=== PATIENT | male | born 1960 | race African-American/Black ===

== ENCOUNTER 2017-08-19 16:44 | Emergency (ER) | payer OTHER, MEDICAID, SELFPAY ==
[2017-08-19 16:48] VITALS: BP 149/89; PULSE 111; RESP 15; TEMP 37.1; O2SAT 98; BMI 23.0
[2017-08-19 17:04] LABS: Appearance Urine UA TURBID; Bilirubin Urine UA NEGATIVE (NEGATIVE); Color Urine UA YELLOW; Glucose Urine UA NEGATIVE (Normal); Ketones Urine UA TRACE (NEGATIVE); Leukocyte Esterase Urine UA NEGATIVE (NEGATIVE); Nitrite Urine UA Negative (Negative); Occult Blood Urine UA 3+ (Negative); Protein Urine UA 3+ (Negative); Specific Gravity Urine UA >=1.030 (1.000-1.035); Urobilinogen Urine UA 0.2 E.U./dL (0.2)
[2017-08-19 17:14] LABS: Bacteria Urine Few (2-10); Culture Indicated Urine Specimen Cultured; Mucus Urine 2+ (Negative); RBC Urine 10-30/HPF (0-5/HPF); Squamous Epithelial Cell Urine 0-1 /HPF; WBC Urine 10-30/HPF (0-5/HPF)
--- NOTE | 2017-08-19 17:56 | ED_ITS ---
HPI - Male Genitourinary <Shantal Azar PA-C - Last Filed: 08/19/17 18:41> General Chief complaint: Urogenital-Male Stated complaint: URGENCY, BLOOD IN URINE Time Seen by Provider: 08/19/17 17:39 Source: patient Mode of arrival: ambulatory Limitations: no limitations History of Present Illness HPI Narrative: This 56-year-old male complains of UTI. He states that he started to have burning with urination along with urgency and frequency yesterday, then noticed hematuria at the end of his stream this morning. He states the symptoms are similar to his previous urinary infections for which she has always taken Cipro. He denies any penile discharge or STD concerns. He denies any nausea, vomiting, fever, new flank pain or abdominal pain or other complaints on systems review. Related Data Home Medications Medication Instructions Recorded Confirmed colestipol 1 gram tablet 1 gram PO TID 07/02/17 07/04/17 Previous Rx's Medication Instructions Recorded nystatin 100,000 unit/gram topical 1 applictn TOP TID #30 gram 07/02/17 cream ciprofloxacin HCl [Cipro] 250 mg PO BID #10 tab 08/19/17 phenazopyridine [Pyridium] 200 mg PO Q8H PRN #6 tab 08/19/17 Allergies Allergy/AdvReac Type Severity Reaction Status Date / Time Iodinated Contrast- Oral and Allergy Unknown Verified 08/19/17 16:48 IV Dye [IODINATED CONTRAST- ORAL AND IV DYE] Review of Systems <Shantal Azar PA-C - Last Filed: 08/19/17 18:41> Review of Systems All systems reviewed & are unremarkable except as noted in HPI and below Exam <Shantal Azar PA-C - Last Filed: 08/19/17 18:41> Narrative Exam Narrative: GENERAL APPEARANCE: Patient sitting comfortably, in no distress. LUNGS: Clear to auscultation bilaterally. HEART: Rate and rhythm regular without murmur, normal S1 and S2, no S3 or S4. ABDOMEN: Soft, NT, ND, +BS x 4 quadrants, no CVAT. Initial Vital Signs Initial Vital Signs: Vital Signs Temperature 98.7 F 08/19/17 16:48 Pulse Rate 111 H 08/19/17 16:48 Respiratory Rate 15 08/19/17 16:48 Blood Pressure 149/89 H 08/19/17 16:48 Pulse Oximetry 98 08/19/17 16:48 <DO Jen Montoya Last Filed: 08/21/17 17:41> Initial Vital Signs Initial Vital Signs: Vital Signs Temperature 98.7 F 08/19/17 16:48 Pulse Rate 111 H 08/19/17 16:48 Respiratory Rate 15 08/19/17 16:48 Blood Pressure 149/89 H 08/19/17 16:48 Pulse Oximetry 98 08/19/17 16:48 Course <MAURICIO Reis Last Filed: 08/19/17 18:41> Orders Ordered: ED Orders 08/19/17 16:49 Urinalysis and Microscopic Stat Urine Culture Stat Vital Signs - 8 hr 08/19/17 16:48 08/19/17 18:03 Temperature 98.7 F Pulse Rate 111 H 96 H Respiratory Rate 15 14 Blood Pressure 149/89 H 144/93 H Pulse Oximetry 98 97 <DO Jen Montoya Last Filed: 08/21/17 17:41> Orders Ordered: ED Orders 08/19/17 16:49 Urinalysis and Microscopic Stat Urine Culture Stat Vital Signs - 8 hr 08/19/17 16:48 08/19/17 18:03 Temperature 98.7 F Pulse Rate 111 H 96 H Respiratory Rate 15 14 Blood Pressure 149/89 H 144/93 H Pulse Oximetry 98 97 MDM - Male Genitourinary <MAURICIO Reis Last Filed: 08/19/17 18:41> Lab Data Attestation: I reviewed the patient's lab results. Lab Results 08/19/17 Range/Units 16:49 Urine Color Yellow Urine Appearance Turbid Urine pH 5.0 (4.5-8.0) Ur Specific [place] >=1.030 H (1.000-1.035) Urine Protein 3+ H (Negative) Urine Glucose (UA) Negative (Normal) g/dL Urine Ketones Trace H (NEGATIVE) Urine Occult Blood 3+ H (Negative) Urine Nitrate Negative (Negative) Urine Bilirubin Negative (NEGATIVE) Urine Urobilinogen 0.2 (0.2) E.U./dL Ur Leukocyte Esterase Negative (NEGATIVE) Urine RBC 10-30/hpf H (0-5/HPF) Urine WBC 10-30/hpf H (0-5/HPF) Ur Squamous Epith Cells 0-1 /hpf Urine Bacteria Few (2-10) H (None) Urine Mucus 2+ H (Negative) Ur Culture Indicated? Specimen cultured Micro UA Comment Not Reportable <Rekha Leiva DO - Last Filed: 08/21/17 17:41> Lab Data Lab Results 08/19/17 Range/Units 16:49 Urine Color Yellow Urine Appearance Turbid Urine pH 5.0 (4.5-8.0) Ur Specific [place] >=1.030 H (1.000-1.035) Urine Protein 3+ H (Negative) Urine Glucose (UA) Negative (Normal) g/dL Urine Ketones Trace H (NEGATIVE) Urine Occult Blood 3+ H (Negative) Urine Nitrate Negative (Negative) Urine Bilirubin Negative (NEGATIVE) Urine Urobilinogen 0.2 (0.2) E.U./dL Ur Leukocyte Esterase Negative (NEGATIVE) Urine RBC 10-30/hpf H (0-5/HPF) Urine WBC 10-30/hpf H (0-5/HPF) Ur Squamous Epith Cells 0-1 /hpf Urine Bacteria Few (2-10) H (None) Urine Mucus 2+ H (Negative) Ur Culture Indicated? Specimen cultured Micro UA Comment Not Reportable Discharge Plan Departure Patient Disposition: Home, Self-Care Clinical Impression: UTI (urinary tract infection) Discharge Date/Time: 08/19/17 18:04 Interventions: ED Discharge Assessment Last Done: 08/19/17 18:03 Instructions: DI for Urinary Tract Infection (UTI) Activity Restrictions/Additional Instructions: Return as we talked about if you have acutely worsening symptoms since we will not have cultures back for a day or 2, otherwise follow up with your PCP if this is not getting better in the next few days. Prescriptions: New ciprofloxacin HCl [Cipro] 250 mg tablet 250 mg PO BID Qty: 10 RF: 0 phenazopyridine [Pyridium] 200 mg tablet 200 mg PO Q8H PRN (Reason: pain) Qty: 6 RF: 0 No Action colestipol 1 gram tablet 1 gram PO TID RF: 0 nystatin 100,000 unit/gram cream 1 applictn TOP TID Qty: 30 RF: 0 Referrals: Renu Reis DO [Physician] - <Rekha Leiva DO - Last Filed: 08/21/17 17:41> Cosign ED Attending Cosamilcarature Attestation: I was immediately available in the department for consultation. Documentation has been reviewed. I agree with assessment and plan.
[2017-08-19 18:03] VITALS: BP 144/93; PULSE 96; RESP 14; O2SAT 97
== END 2017-08-19 18:04 | disposition home or self-care (01) ==
PROVIDERS: Emergency Provider Internal Medicine
DX: N39.0 Urinary tract infection, site not specified (principal)
CPT/HCPCS: 81001; 87086; 99282; 99283

== ENCOUNTER → 2017-09-03 11:43 | Outpatient (CLI) | payer OTHER, MEDICAID, SELFPAY | PROVIDERS: PCP Family Medicine; Visit Provider Family Medicine | DX: K50.90 Crohn's disease, unspecified, without complications (principal); N30.01 Acute cystitis with hematuria; N39.0 Urinary tract infection, site not specified; Z11.3 Encounter for screening for infections with a predominantly sexual mode of transmission ==

== ENCOUNTER → 2017-09-05 10:00 | Outpatient (CLI) | payer OTHER, MEDICAID, SELFPAY ==
[2017-09-05 12:48] LABS: Urine N gonorrhoeae NOT DETECTED
[2017-09-05 12:51] LABS: Urine Chlamydia NOT DETECTED
== END ==
PROVIDERS: PCP Family Medicine; Visit Provider Family Medicine
DX: N39.0 Urinary tract infection, site not specified (principal); K50.90 Crohn's disease, unspecified, without complications; Z11.3 Encounter for screening for infections with a predominantly sexual mode of transmission; N30.01 Acute cystitis with hematuria
CPT/HCPCS: 36415; 86812; 87491; 87591

== ENCOUNTER → 2018-03-30 10:59 | Outpatient (CLI) | payer OTHER, MEDICAID, SELFPAY ==
[2018-03-30 11:59] LABS: Add Manual Diff / Slide Review NO; Basophils Absolute Auto 300 /uL (0-100); Basophils Percent Auto 3.5 % (0-2); Eosinophils Absolute Auto 100 /uL (0-450); Eosinophils Percent Auto 1.7 % (2-4); Hematocrit 43.6 % (41-53); Hemoglobin 14.8 g/dL (13.5-17.5); Lymphocytes Absolute Auto 2000 /uL (1100-4500); Lymphocytes Percent Auto 23.1 % (25-40); Mean Corpuscular HGB Conc 34.1 % (30-36); Mean Corpuscular Hemoglobin 27.5 PG (26-34); Mean Corpuscular Volume 80.7 fL (80-100); Monocytes Absolute Auto 400 /uL (0-900); Monocytes Percent Auto 4.2 % (3-14); Neutrophils Absolute Auto 5700 /uL (1500-7000); Neutrophils Percent Auto 67.5 % (50-75); Platelet Count 441 X10^3/uL (150-400); Red Cell Distribution Width 14.2 % (11.6-14.8); White Blood Cell Count 8.5 X10^3/uL (4.5-11.0)
[2018-03-30 12:09] LABS: HEMOLYSIS < 15 (0-50); Iron 71 ug/dL (49-181)
[2018-03-30 12:13] LABS: Alanine Aminotransferase 21 IU/L (21-72); Albumin 4.5 g/dL (3.5-5.0); Albumin Globulin Ratio 1.1 (1.0-2.8); Alkaline Phosphatase 107 U/L (38-126); Aspartate Aminotransferase 23 IU/L (17-59); Bilirubin Total 0.5 mg/dL (0.2-1.3); Blood Urea Nitrogen 12 mg/dL (9-20); Carbon Dioxide 27 mmol/L (22-32); Chloride 102 mmol/L (98-107); Cholesterol 73 mg/dL (140-199); Estimated Glomerular Filt Rate > 60.0 mL/min (>60); Globulin 4.2 g/dL (1.7-4.1); Glucose 91 mg/dL (70-100); HDL Cholesterol 29 mg/dL (40-60); HEMOLYSIS < 15 (0-50); LDL Cholesterol Calculated 22 mg/dL (<100); Potassium 3.8 mmol/L (3.4-5.1); Sodium 140 mmol/L (137-145); Total Protein 8.7 g/dL (6.3-8.2); Triglycerides 111 mg/dL (35-150)
[2018-03-30 12:20] LABS: Percent Iron Saturation 26 % (20-50); Total Iron Binding Capacity 272 ug/dL (261-462); Transferrin 197 mg/dL (206-381)
[2018-03-30 12:25] LABS: Vitamin D 25 Hydroxy (D3) 16.4 ng/mL (30.0-100.0)
[2018-03-30 12:41] LABS: Thyroid Stimulating Hormone 3.71 uIU/mL (0.47-4.68)
[2018-03-30 13:17] LABS: Erythrocyte Sedimentation Rate 17 MM/HR (0-15)
[2018-03-30 13:21] LABS: Vitamin B12 351 pg/mL (239-931)
== END ==
PROVIDERS: PCP Family Medicine; Visit Provider Physician Assistant
DX: K50.90 Crohn's disease, unspecified, without complications (principal); R03.0 Elevated blood-pressure reading, without diagnosis of hypertension; Z13.6 Encounter for screening for cardiovascular disorders; Z13.220 Encounter for screening for lipoid disorders; M79.10 Myalgia, unspecified site
CPT/HCPCS: 36415; 80053; 80061; 82306; 82607; 82728; 82746; 83540; 83550; 84443; 85025; 85651

== ENCOUNTER 2018-05-26 08:21 | Emergency (ER) | payer OTHER, MEDICAID, SELFPAY ==
[2018-05-26 08:24] VITALS: BP 133/76; PULSE 89; RESP 16; TEMP 36.9; O2SAT 99; BMI 23.0
--- NOTE | 2018-05-26 08:25 | ED_ITS ---
HPI - Dental/Oral General Chief complaint: Dental/Oral Stated complaint: TOOTH ACHE RT SIDE Time Seen by Provider: 05/26/18 08:25 Source: patient Mode of arrival: ambulatory Limitations: no limitations History of Present Illness HPI Narrative: Patient is a 57-year-old male here for evaluation of swelling and pain to his right upper jaw. He states that he started noticing a couple days ago. He feels that there is a infection in the area. He has not seen a dentist for this. Has had dental issues in the past. Is not allergic to any medications. No problems breathing. Related Data Home Medications Medication Instructions Recorded Confirmed colestipol 1 gram tablet 1 gram PO TID 07/02/17 03/26/18 Previous Rx's Medication Instructions Recorded hydrocodone-acetaminophen [[place]] 1 tab PO Q4-6H PRN #7 tab 05/26/18 penicillin V potassium 500 mg PO QID 7 Days #28 tab 05/26/18 Allergies Allergy/AdvReac Type Severity Reaction Status Date / Time Iodinated Contrast- Oral and Allergy Unknown Verified 05/26/18 08:32 IV Dye [IODINATED CONTRAST- ORAL AND IV DYE] Review of Systems Constitutional Reports fatigue and Denies fever(s) Eyes Denies change in vision ENT Ears, Nose, Mouth, and Throat: Reports dental pain, Denies vertigo, Denies dizziness, Denies ear discharge, Denies otalgia, Reports mouth lesions, Reports mouth pain, Denies nasal congestion, Denies nasal discharge, Denies neck mass, Denies neck pain, Denies sore throat and Denies throat swelling Cardiovascular Denies dyspnea Respiratory Denies dyspnea Musculoskeletal Denies neck pain Integumentary/Breasts Denies rash Neurologic Denies vertigo and Denies dizziness Endocrine Reports fatigue Hematologic/Lymphatic Denies easy bleeding and Denies easy bruising Allergic/Immunologic Denies throat swelling [facility] Medical History [place]-vesical fistula (Chronic) Crohn's disease (Chronic ~2007) Restless leg syndrome (Chronic ~2014) Family History (Updated 08/25/17 @ 10:21 by Celina Babin LPN) Father No problems noted. Mother Diabetes mellitus Hypertension Social History Smoking Status: Current every day smoker quit status: considering quitting alcohol intake: current (2 beers a week ) substance use type: marijuana (Daily) Exam Initial Vital Signs Initial Vital Signs: Vital Signs Temperature 98.4 F 05/26/18 08:24 Pulse Rate 89 05/26/18 08:24 Respiratory Rate 16 05/26/18 08:24 Blood Pressure 133/76 05/26/18 08:24 Pulse Oximetry 99 05/26/18 08:24 Const General: cooperative, comfortable, well developed, well groomed and No acute distress Orientation: alert, awake and oriented x3 HENMT Ears: other (Bilateral tympanic membranes obscured by cerumen.) Face and sinus: other (Swelling right maxilla area.) Mouth: No moist mucous membranes and other (No drainable abscess seen in the oral cavity) Teeth and gingiva: other Throat: posterior oropharynx normal Resp Effort & Inspection: normal respiratory effort Auscultation: clear to auscultation bilaterally Cardio Rate: regular rate Rhythm: regular rhythm Skin Lesions: no lesions Rashes: no rashes Neuro General: alert, awake and oriented x3 Course Vital Signs - 8 hr 05/26/18 08:24 Temperature 98.4 F Pulse Rate 89 Respiratory Rate 16 Blood Pressure 133/76 Pulse Oximetry 99 MDM - Dental/Oral MDM Narrative Medical decision making narrative: Patient does have swelling in the right upper maxillary area. No overlying skin changes. No drainable abscess seen in the oral cavity. No problems breathing. I do suspect a dental infection. He does have poor dentition. Will start on antibiotics. Also give a short course of pain medication. He was instructed that he needed to follow up with his dentist. He was given return precautions. He expressed understanding and agreement with plan. Discharge Plan Departure Patient Disposition: Home Clinical Impression: Dental abscess Instructions: Tooth Abscess, DI for Dental Pain Activity Restrictions/Additional Instructions: Take the antibiotics as directed. I do recommend that you follow up with [facility] since he do not have an established dentist currently. Return to the emergency department for any new or worsening symptoms. Prescriptions: New hydrocodone-acetaminophen [[place]] 5-325 mg tablet 1 tab PO Q4-6H PRN (Reason: pain) Qty: 7 RF: 0 penicillin V potassium 500 mg tablet 500 mg PO QID 7 Days Qty: 28 RF: 0 No Action colestipol 1 gram tablet 1 gram PO TID RF: 0 Referrals: Smiley,Renu, DO [Primary Care Provider] -
--- NOTE | 2018-05-26 08:51 | PC.NURSE ---
Patient's right side of face is swollen around right upper tooth.
== END 2018-05-26 08:54 | disposition home or self-care (01) ==
PROVIDERS: Emergency Provider Emergency Medicine; PCP Family Medicine
DX: K04.7 Periapical abscess without sinus (principal)
CPT/HCPCS: 99282; 99283

== ENCOUNTER → 2018-06-08 09:56 | Outpatient (CLI) | payer OTHER, MEDICAID, SELFPAY ==
--- NOTE | 2018-06-08 09:59 | DI.RAD.S_ITS ---
PROCEDURE: XR CERVICAL SPINE 2V OR 3V INDICATIONS: Right upper back and shoulder pain/neck pain TECHNIQUE: 3 view(s) of the cervical spine were acquired. COMPARISON: None. FINDINGS: Bones: No fractures or dislocations to the T1 level. Mild to moderate degenerative disc disease is seen at C4-5 and C5-6, and present to a lesser degree immediately above and below. No subluxation associated. The lateral masses of C1 appear intact on the odontoid view. No suspicious bony lesions. Prior C4-C6 laminectomies bilaterally. Soft tissues: No prevertebral soft tissue swelling. IMPRESSION: Degenerative disc disease and facet osteoarthritis is present over the middle third of the cervical spine but without evidence of abnormal subluxation or recent trauma. Prior laminectomies have been performed at C4-6. Anterior or posterior fusion devices are not present. It may be warranted to obtain flexion and extension imaging in this circumstance. Dictated by: Anshul Nicole M.D. on 06/08/2018 at 13:03 Approved by: Anshul Nicole M.D. on 06/08/2018 at 13:05
[2018-06-08 11:17] LABS: Prostate Specific Antigen Scrn 1.64 ng/mL (0.1-4.0)
== END ==
PROVIDERS: PCP Family Medicine; Visit Provider Physician Assistant
DX: M54.6 Pain in thoracic spine (principal); M25.511 Pain in right shoulder; M50.321 Other cervical disc degeneration at C4-C5 level; M47.812 Spondylosis without myelopathy or radiculopathy, cervical region; M62.838 Other muscle spasm; Z12.5 Encounter for screening for malignant neoplasm of prostate
CPT/HCPCS: 36415; 72040; G0103

== ENCOUNTER 2018-12-28 07:41 | Emergency (ER) | payer OTHER, MEDICAID, SELFPAY ==
--- NOTE | 2018-12-28 08:12 | ED_ITS ---
HPI - Extremity Problem General Chief complaint: Extremity Problem,Nontraumatic Stated complaint: both legs tight and swollen from knee down Time Seen by Provider: 12/28/18 08:12 Source: patient Mode of arrival: Ambulatory Limitations: no limitations History of Present Illness HPI Narrative: This is a pleasant 58-year-old male comes to the emergency department with complaint of swelling from his knees into his feet. Patient states he has noticed over the last several days. He states he has had some flaky ashy skin but relates that to being dry not having any moisturizer. Patient has not had any weeping. He states his legs feel tight but not painful. It is both lower extremities they but equal. He has not had any fevers or chills. He states feels a little short of breath this morning. He has had a l ittle bit of nasal congestion the last several days. And a mild cough. Patient denies any chest pain or pressure. He denies any nausea, no vomiting. patient states he has diarrhea intermittently but has known Crohn's disease. He has not appreciated any black or blood in his stool. Patient states he has not had swelling in his lower extremities in the past. He states new for him. Besides Crohn's he denies any other medical issues. He takes colestipol for his Crohn's. He states that his symptoms have been controlled recently. He denies any prior surgeries. He denies any allergies to medications. Related Data Home Medications Medication Instructions Recorded Confirmed colestipol 1 gram tablet 1 gram PO TID 07/02/17 06/04/18 Previous Rx's Medication Instructions Recorded hydrocodone-acetaminophen [[place]] 1 tab PO Q4-6H PRN #7 tab 05/26/18 B-complex with vitamin C 1 cap PO DAILY #60 cap 06/04/18 cholecalciferol (vitamin D3) 1,000 1,000 unit PO DAILY #60 tab 06/04/18 unit chewable tablet furosemide [Lasix] 20 mg PO DAILY #5 tab 12/28/18 Allergies Allergy/AdvReac Type Severity Reaction Status Date / Time Iodinated Contrast Media Allergy Mild a slight Verified 12/28/18 08:28 [IODINATED CONTRAST- ORAL rash at AND IV DYE] the site of injection. Review of Systems Review of Systems ROS Unobtainable: All systems reviewed & are unremarkable except as noted in HPI and below Constitutional Constitutional: Denies chills, Denies fever(s), Denies lethargy and Denies weakness ENT Ears, Nose, Mouth, and Throat: Reports nasal congestion Cardiovascular Cardiovascular: Denies chest pain, Reports edema, Denies irregular heart rhythm, Denies lightheadedness, Denies radiating jaw, neck or arm pain, Denies palpitations, Reports dyspnea, Denies dyspnea on exertion and Denies orthopnea Respiratory Respiratory: Denies change in phlegm color, Denies chest congestion, Reports cough, Denies excessive phlegm production, Reports dyspnea, Denies dyspnea on exertion and Denies wheezing Gastrointestinal Gastrointestinal: Denies abdominal pain, Denies melena, Denies hematochezia, Denies change in bowel habits, Denies constipation, Reports diarrhea (chronically ), Denies nausea and Denies vomiting Genitourinary Genitourinary: Denies hematuria, Denies dysuria, Denies flank pain, Denies urinary frequency, Denies urinary incontinence and Denies urinary urgency Musculoskeletal Musculoskeletal: Denies muscle weakness, Denies numbness and Denies tingling Integumentary/Breasts Skin/Breast: Denies erythema, Denies rash, Denies sores, Denies unusual bruising and Denies wounds Neurologic Neurologic: Denies numbness, Denies tingling and Denies weakness Endocrine Endocrine: Denies palpitations Allergic/Immunologic Allergic/Immunologic: Denies wheezing Patient History Medical History [place]-vesical fistula (Chronic) Crohn's disease (Chronic ~2007) Restless leg syndrome (Chronic ~2014) Surgical History History of back surgery (Resolved Unknown) History of colon resection (Chronic) Hx of abdominal surgery (Resolved Unknown) Family History Father No problems noted. Mother Diabetes mellitus Hypertension Social History Smoking Status: Current every day smoker quit status: considering quitting alcohol intake: current (2 beers a week ) substance use type: marijuana (Daily) alcohol intake frequency: a few times a month Substance Use Type: marijuana Exam Narrative Exam Narrative: GENERAL: Alert and oriented x three, well-nourished, well- appearing male in mild distress. HEENT: Head normocephalic, atraumatic, EOMI, pupils reactive, face symmetric, moist mucous membranes NECK: Supple, full range of motion CARDIOVASCULAR: Regular rate and rhythm without murmurs, rubs or gallops. RESPIRATORY: Breath sounds equal bilaterally, no wheezes rales or rhonchi. ABDOMEN: Soft, nontender. Normoactive bowel sounds all 4 quadrants. No guarding or rebound, rigidity, no mass : No CVA tenderness EXTREMITIES: Normal range of motion, no clubbing. Patient has 1+ edema bilateral lower extremities and into both feet. Nonpitting. Neurovascularly intact NEUROLOGICAL: Cranial nerves II through XII grossly intact. Moving all ex tremities SKIN: Warm, dry, no petechiae, no rashes or lesions. patient does have ?ashy? flaky skin with no erythema or skin color changes. Is nontender to the touch. Initial Vital Signs Initial Vital Signs: Vital Signs Temperature 97.7 F 12/28/18 08:24 Pulse Rate 65 12/28/18 08:24 Respiratory Rate 18 12/28/18 08:24 Blood Pressure 136/87 12/28/18 08:24 Pulse Oximetry 100 12/28/18 08:24 Course Orders Ordered: Discontinued Medications Furosemide (Lasix) 40 mg IV NOW ONE Stop: 12/28/18 08:19 Last Admin: 12/28/18 09:43 Dose: 40 mg Documented by: GIDEON Vital Signs Vital signs: Vital Signs - 8 hr 12/28/18 08:24 12/28/18 09:30 Temperature 97.7 F Pulse Rate 65 66 Respiratory Rate 18 15 Blood Pressure 136/87 Blood Pressure [Right Arm] 147/89 H Pulse Oximetry 100 99 MDM - Extremity (Nontraumatic) Lab Data Result diagrams: 12/28/18 09:00 12/28/18 09:00 Labs: Lab Results 12/28/18 12/28/18 Range/Units 09:00 09:00 WBC 6.8 (4.5-11.0) X10^3/uL RBC 4.91 (4.5-5.9) X10^6/uL Hgb 13.6 (13.5-17.5) g/dL Hct 41.1 (41-53) % MCV 83.6 (80-100) fL MCH 27.6 (26-34) PG MCHC 33.0 (30-36) % RDW 14.6 (11.6-14.8) % Plt Count 327 (150-400) X10^3/uL Neut % (Auto) 62.9 (50-75) % Lymph % (Auto) 27.4 (25-40) % [place] % (Auto) 6.6 (3-14) % Eos % (Auto) 2.2 (2-4) % Baso % (Auto) 0.9 (0-2) % Neut # (Auto) 4300 (1355-5894) /uL Lymph # (Auto) 1900 (7208-8741) /uL [place] # (Auto) 500 (0-900) /uL Eos # (Auto) 200 (0-450) /uL Baso # (Auto) 100 (0-100) /uL Sodium 141 (137-145) mmol/L Potassium 4.2 (3.4-5.1) mmol/L Chloride 103 (98-107) mmol/L Carbon Dioxide 29 (22-32) mmol/L BUN 13 (9-20) mg/dL Creatinine 1.00 (0.66-1.25) mg/dL Estimated GFR > 60.0 (>60) mL/min BUN/Creatinine Ratio 13.0 (6-22) Glucose 86 (70-100) mg/dL Calcium 8.7 (8.4-10.2) mg/dL Total Creatine Kinase 154 (55-170) U/L CK-MB (CK-2) 1.53 (<2.37) ng/mL CK-MB (CK-2) Rel Index 1.0 L (1.5-5.0) % Troponin I < 0.012 (0.01-0.034) ng/mL B-Natriuretic Peptide < 100 (<100) Imaging Data Chest x-ray: Radiologist's impression: [address] [id number] XRay Report Signed Patient: Romeo Salgado CMR#: [id number] : 1Acct:[id number] Age/Sex: 58 / MDate of Service: 12/28/18 Loc: ED Accession Number: [id number] Procedure: XR chest 1V Ordering Provider: Magalie Smith D.O. PROCEDURE: XR CHEST 1V INDICATIONS: swelling lower extremities, mild dyspnea TECHNIQUE: One view of the chest was acquired. COMPARISON: None. FINDINGS: Surgical changes and devices: None. Lungs and pleura: No focal infiltrates are seen. Generalized interstitial prominence can be seen. No pleural effusions or pneumothorax. Mediastinum: Mediastinal contours appear normal. Heart size is normal. Bones and chest wall: No suspicious bony lesions. Overlying soft tissues appear unremarkable. IMPRESSION: Interstitial prominence is seen throughout. The interstitial prominence is nonspecific, yet may be related to pulmonary edema. Dictated by: Ritesh Meyers M.D. on 12/28/2018 at 8:15 Approved by: Ritesh Meyers M.D. on 12/28/2018 at 8:16 ECG Data Attestation EKG: I personally reviewed and interpreted this ECG as follows: Prior ECG tracings: not available for review Interpretation: Sinus rhythm rate of 71 P are 182 QRS is 79 QTC of 402. No ST elevation or depression. MDM Narrative Medical decision making narrative: Patient comes in with lower extremity edema. No acute cardiac cause is noted. Patient has had a little bit of a dry cough but also nasal congestion. Patient has some interstitial change on chest x-ray. Troponin, BNP are negative. Patient does not show any other major findings. Plan for a short course of Lasix and follow up with PCP. Patient is comfortable with the plan. Discharge Plan Departure Patient Disposition: Home Clinical Impression: Bilateral edema of lower extremity Discharge Date/Time: 12/28/18 10:42 Activity Restrictions/Additional Instructions: Follow-up with primary care the next 3-5 days for recheck. Take Lasix once daily until gone. New prescription was sent to [facility]. Continue home medications as prescribed. Return to the emergency department for fevers greater 100.4 F, new redness, rapidly worsening swelling, new or worsening shortness of breath, fair unable to lay flat secondary to shortness of breath, no chest pain or pressure, persistent vomiting, black or bloody stools or other new or concerning symptoms. Prescriptions: New furosemide [Lasix] 20 mg tablet 20 mg PO DAILY Qty: 5 RF: 0 No Action B-complex with vitamin C capsule 1 cap PO DAILY Qty: 60 RF: 6 cholecalciferol (vitamin D3) [[employer] Vitamin D3] 1,000 unit tablet,chewable 1,000 unit PO DAILY Qty: 60 RF: 6 colestipol 1 gram tablet 1 gram PO TID RF: 0 hydrocodone-acetaminophen [[place]] 5-325 mg tablet 1 tab PO Q4-6H PRN (Reason: pain) Qty: 7 RF: 0 Referrals: Renu Reis DO [Primary Care Provider] -
--- NOTE | 2018-12-28 08:19 | DI.RAD.S_ITS ---
PROCEDURE: XR CHEST 1V INDICATIONS: swelling lower extremities, mild dyspnea TECHNIQUE: One view of the chest was acquired. COMPARISON: None. FINDINGS: Surgical changes and devices: None. Lungs and pleura: No focal infiltrates are seen. Generalized interstitial prominence can be seen. No pleural effusions or pneumothorax. Mediastinum: Mediastinal contours appear normal. Heart size is normal. Bones and chest wall: No suspicious bony lesions. Overlying soft tissues appear unremarkable. IMPRESSION: Interstitial prominence is seen throughout. The interstitial prominence is nonspecific, yet may be related to pulmonary edema. Dictated by: Ritesh Meyers M.D. on 12/28/2018 at 8:15 Approved by: Ritesh Meyers M.D. on 12/28/2018 at 8:16
[2018-12-28 08:24] VITALS: BP 136/87; PULSE 65; RESP 18; TEMP 36.5; O2SAT 100; BMI 23.0
[2018-12-28 09:08] LABS: Add Manual Diff / Slide Review NO; Basophils Absolute Auto 100 /uL (0-100); Basophils Percent Auto 0.9 % (0-2); Eosinophils Absolute Auto 200 /uL (0-450); Eosinophils Percent Auto 2.2 % (2-4); Hematocrit 41.1 % (41-53); Hemoglobin 13.6 g/dL (13.5-17.5); Lymphocytes Absolute Auto 1900 /uL (1100-4500); Lymphocytes Percent Auto 27.4 % (25-40); Mean Corpuscular Hemoglobin 27.6 PG (26-34); Mean Corpuscular Volume 83.6 fL (80-100); Monocytes Absolute Auto 500 /uL (0-900); Monocytes Percent Auto 6.6 % (3-14); Neutrophils Absolute Auto 4300 /uL (1500-7000); Neutrophils Percent Auto 62.9 % (50-75); Platelet Count 327 X10^3/uL (150-400); Red Blood Cell Count 4.91 X10^6/uL (4.5-5.9); Red Cell Distribution Width 14.6 % (11.6-14.8); White Blood Cell Count 6.8 X10^3/uL (4.5-11.0)
[2018-12-28 09:20] LABS: Blood Urea Nitrogen 13 mg/dL (9-20); Calcium 8.7 mg/dL (8.4-10.2); Carbon Dioxide 29 mmol/L (22-32); Chloride 103 mmol/L (98-107); Creatine Kinase 154 U/L (55-170); Estimated Glomerular Filt Rate > 60.0 mL/min (>60); Glucose 86 mg/dL (70-100); HEMOLYSIS < 15 (0-50); Potassium 4.2 mmol/L (3.4-5.1); Sodium 141 mmol/L (137-145)
[2018-12-28 09:30] VITALS: BP 147/89; PULSE 66; RESP 15; O2SAT 99
[2018-12-28 09:30] LABS: Troponin I < 0.012 ng/mL (0.01-0.034)
[2018-12-28 09:35] LABS: Creatine Kinase MB 1.53 ng/mL (<2.37)
[2018-12-28] MEDS: FUROSEMIDE 40 MG/4 ML VIAL IV (09:43)
[2018-12-28 10:00] VITALS: BP 151/93; PULSE 72; RESP 16; O2SAT 99
[2018-12-28 10:04] LABS: B Type Natriuretic Peptide < 100 (<100)
== END 2018-12-28 10:42 | disposition home or self-care (01) ==
PROVIDERS: Emergency Provider Emergency Medicine; PCP Family Medicine
DX: R60.0 Localized edema (principal); R06.00 Dyspnea, unspecified
CPT/HCPCS: 36415; 71045; 80048; 82550; 82553; 83880; 84484; 85025; 96374; 99283; 99285; J1940

== ENCOUNTER 2020-06-26 13:16 | Emergency (ER) | payer OTHER, MEDICAID, SELFPAY ==
[2020-06-26 13:20] VITALS: BP 144/92; PULSE 99; RESP 12; TEMP 36.1; O2SAT 98; BMI 23.7
[2020-06-26 14:21] LABS: Bacteria Urine Few (2-10); Mucus Urine 1+ (Negative); RBC Urine 5-10/HPF (0-5/HPF); Squamous Epithelial Cell Urine None Seen (0-5/HPF); WBC Urine 10-30/HPF (0-5/HPF)
[2020-06-26 14:22] LABS: Culture Indicated Urine Specimen Cultured
== END 2020-06-26 14:24 | disposition left against medical advice (07) ==
PROVIDERS: Emergency Provider Emergency Medicine
DX: R35.0 Frequency of micturition (principal)
CPT/HCPCS: 81003; 81015; 87077; 87086; 87186; 99281

== ENCOUNTER 2021-09-12 10:44 | Emergency (ER) | payer OTHER, MEDICAID, SELFPAY ==
[2021-09-12 10:53] VITALS: BP 174/103; PULSE 88; RESP 14; TEMP 36.1; O2SAT 99; BMI 23.0
[2021-09-12 11:19] LABS: Amorphous Sediment Urine 1+; Bacteria Urine Moderate (10-30); Culture Indicated Urine Specimen Cultured; Hyaline Casts Urine 1-5/LPF; Mucus Urine 2+ (Negative); RBC Urine 5-10/HPF (0-5/HPF); WBC Urine 10-30/HPF (0-5/HPF)
[2021-09-12 12:40] VITALS: BP 159/96; PULSE 82; O2SAT 99
--- NOTE | 2021-09-12 12:42 | PC.NURSE ---
Reports burning with urination and frequency. Similar to UTI he has had in the past. History of Ch[place].
[2021-09-12 13:00] VITALS: PULSE 78; O2SAT 100
--- NOTE | 2021-09-12 13:39 | ED.MALEGU ---
HPI - Male Genitourinary General Chief complaint: Urogenital-Male Stated complaint: UTI Time Seen by Provider: 09/12/21 13:20 Source: patient Mode of arrival: Ambulatory History of Present Illness HPI Narrative: Patient is a 61-year-old male who has a history of Crohn's disease hyperlipidemia and frequent UTIs. He said his last UTI with March or at [facility]. He cannot exactly how long he has had painful frequent urination but his penis started hurting today he denies any penile discharge. He states he is not sexually active no concern for STDs for him. He is trying to get back with his Crohn's disease he has an appointment with GI at [facility] next month. He denies any fever flank pain or abdominal pain. No nausea or vomiting. Related Data Previous Rx's Medication Instructions Recorded hydrocodone 5 mg-acetaminophen 325 1 tab PO Q4-6H PRN pain #7 tabs 05/26/18 mg tablet ([place]) B-complex with vitamin C 1 cap PO DAILY #60 caps 06/04/18 cholecalciferol (vitamin D3) 25 1,000 unit PO DAILY #60 tabs 06/04/18 mcg (1,000 unit) chewable tablet ([facility] Vitamin D3) furosemide 20 mg tablet (Lasix) 20 mg PO DAILY #5 tabs 12/28/18 colestipol 1 gram tablet 1 gram PO TID #90 tabs 01/19/19 cephalexin 500 mg capsule 500 mg PO BID 7 days #14 caps 09/12/21 Allergies Allergy/AdvReac Type Severity Reaction Status Date / Time Iodinated Contrast Media Allergy Mild a slight Verified 09/12/21 10:53 [IODINATED CONTRAST- ORAL rash at AND IV DYE] the site of injection. Review of Systems Review of Systems Narrative: GENERAL: Denies chills,fever HEENT: Denies throat pain RESPIRATORY: Denies dyspnea, cough, wheezing CARDIOVASCULAR: Denies chest pain, palpitations GASTROINTESTINAL: Denies nausea, vomiting : See HPI MUSCULOSKELETAL: Denies extremity pain, injury SKIN: No rash, no laceration, no pruritus NEUROLOGIC: Denies weakness, dizziness, headache, numbness 8 point review of systems is negative except for those stated above and HPI Patient History Medical History (Updated 09/12/21 @ 13:51 by Rekha Leiva DO) Buchanan-vesical fistula Crohn's disease (~2008) Restless leg syndrome (~2015) Surgical History History of back surgery (Unknown) History of colon resection Hx of abdominal surgery (Unknown) Family History Father No problems noted. Mother Diabetes mellitus Hypertension Social History Smoking Status: Current every day smoker quit status: considering quitting alcohol intake: current (2 beers a week ) substance use type: marijuana (Daily) Smoking Status: Current every day smoker alcohol intake frequency: a few times a month Substance Use Type: marijuana Exam Initial Vital Signs Initial Vital Signs: Vital Signs Temperature 97.0 F L 09/12/21 10:53 Pulse Rate 88 09/12/21 10:53 Respiratory Rate 14 09/12/21 10:53 Blood Pressure 174/103 H 09/12/21 10:53 Pulse Oximetry 99 09/12/21 10:53 Oxygen Delivery Method 09/12/21 10:53 GENERAL: Very pleasant jovial 61-year-old male HEENT: Head atraumatic,EOMI, pupils reactive, face symmetric, moist mucous membranes CARDIOVASCULAR: Regular rate and rhythm without murmurs, rubs or gallops. RESPIRATORY: Breath sounds equal bilaterally, no wheezes rales or rhonchi. ABDOMEN: Soft, nontender. Normoactive bowel sounds all 4 quadrants. No guarding or rebound. : No CVA tenderness EXTREMITIES: Normal range of motion, no clubbing or edema. Neurovascularly intact NEUROLOGICAL: Alert and oriented x4. SKIN: Warm, dry, no laceration, no petechiae, no rashes or lesions. Course Orders Ordered: ED Orders 09/12/21 10:50 Urine Culture Stat Urine Microscopic Stat Vital Signs Vital signs: Vital Signs - 8 hr 09/12/21 10:53 09/12/21 12:40 09/12/21 12:40 Temperature 97.0 F L Pulse Rate 88 82 Respiratory Rate 14 Blood Pressure 174/103 H 159/96 H Pulse Oximetry 99 99 Oxygen Delivery Method Room Air 09/12/21 13:00 09/12/21 14:35 Temperature Pulse Rate 78 77 Respiratory Rate 18 Blood Pressure 164/92 H Pulse Oximetry 100 99 Oxygen Delivery Method Room Air MDM - Male Genitourinary Lab Data Labs: Lab Results 09/12/21 Range/Units 10:50 Urine RBC 5-10/hpf H (0-5/HPF) Urine WBC 10-30/hpf H (0-5/HPF) Amorphous Sediment 1+ Urine Bacteria Moderate (10-30) H (None) Hyaline Casts 1-5/lpf (None) Urine Mucus 2+ H (Negative) Ur Culture Indicated? Specimen cultured Urine Dip Bedside Urine Glucose Negative Bedside Urine Bilirubin + 1 Bedside Urine Ketone - Negative Urine Specific [place] 1.030 Bedside Urine Occult Blood +++ Bedside Urine pH 6.0 Bedside Urine Protein + 30 Bedside Urine Urobilinogen 0.2 Bedside Urine Nitrite - Negative Bedside Urine Leukocytes + 70 Esterase MDM Narrative Medical decision making narrative: Patient overall appears well. He does have blood in leukocytes in his urine he has previous UTIs. Culture from June 2020 does show cash sensitivity. Will start him on Keflex for 1 week. Discharge Plan Departure Patient Disposition: Home Clinical Impression: Urinary tract infection Instructions: DI for Urinary Tract Infection (UTI) Activity Restrictions/Additional Instructions: *You have been diagnosed with UTI *What to do: At this time increase fluids take your antibiotics until they are gone *Continue to take medications as directed Keflex 500 mg twice a day for 7 days-->Sent to [facility] *Follow up with your primary care provider in 2-3 days or call [phone] *Return to ER if you should have increasing pain fever nausea vomiting or any new, worsening or concerning symptoms Prescriptions: New cephalexin 500 mg capsule 500 mg PO BID 7 Days Qty: 14 0RF No Action B-complex with vitamin C capsule 1 cap PO DAILY Qty: 60 6RF cholecalciferol (vitamin D3) [[facility] Vitamin D3] 1,000 unit tablet,chewable 1,000 unit PO DAILY Qty: 60 6RF colestipol 1 gram tablet 1 gram PO TID Qty: 90 3RF hydrocodone-acetaminophen [[place]] 5-325 mg tablet 1 tab PO Q4-6H PRN (Reason: pain) Qty: 7 0RF furosemide [Lasix] 20 mg tablet 20 mg PO DAILY Qty: 5 0RF Referrals: Aaliyah Rhodes ARNP [Primary Care Provider] - Visit Report Forms: Patient Portal/API
[2021-09-12 14:35] VITALS: BP 164/92; PULSE 77; RESP 18; O2SAT 99
== END 2021-09-12 14:06 | disposition home or self-care (01) ==
PROVIDERS: Emergency Provider Emergency Medicine; PCP Nurse Practitioner Family
DX: N39.0 Urinary tract infection, site not specified (principal)
CPT/HCPCS: 81003; 81015; 87077; 87086; 87186; 99282